=== PATIENT | male | born 1955 | race Caucasian/White ===

== ENCOUNTER 2017-09-16 12:20 | Day surgery (SDC) | payer OTHER ==
[~2017-09-16] VITALS: Ht 167.6 cm; Wt 75.7 kg
[~2017-09-16 12:20] MED LIST: ALPR.25; GEMF600; HYDR1TAB94; METO50ER; SERT100
== END 2017-09-16 14:23 | disposition home or self-care (01) ==
LOC: ORSCSDS 12:20
PROVIDERS: Surgery
PROC: 0DJD8ZZ Inspection of Lower Intestinal Tract, Via Natural or Artificial Opening Endoscopic (ICD-10-PCS; principal; 2017-09-16 13:45)
DX: Z12.11 Encounter for screening for malignant neoplasm of colon (principal); Z79.899 Other long term (current) drug therapy
CPT/HCPCS: J7120

== ENCOUNTER 2022-12-13 12:17 | Day surgery (SDC) | payer OTHER ==
[~2022-12-13] VITALS: Ht 167.6 cm; Wt 84.0 kg
[2022-12-13] MEDS ORDERED: AMLO5 (12:42)
[2022-12-13] MEDS ORDERED: BUSPIRONE HCL7.5 M1 (12:43)
[2022-12-13] MEDS ORDERED: ATOR40TA (12:43)
[2022-12-13] MEDS ORDERED: LISI20 (12:44)
[2022-12-13] MEDS ORDERED: FLUO.025TO (12:44)
[2022-12-13] MEDS ORDERED: HYDCHL25 (12:44)
[2022-12-13 14:37] VITALS: BP 116/74
== END 2022-12-13 14:25 | disposition home or self-care (01) ==
LOC: ORSCSDS 12:17
PROVIDERS: Surgery
PROC: 0DBP8ZX Excision of Rectum, Via Natural or Artificial Opening Endoscopic, Diagnostic (ICD-10-PCS; principal; 2022-12-13 13:30)
DX: Z12.11 Encounter for screening for malignant neoplasm of colon (principal); K62.1 Rectal polyp; Z80.0 Family history of malignant neoplasm of digestive organs; F41.8 Other specified anxiety disorders; H91.93 Unspecified hearing loss, bilateral; E78.5 Hyperlipidemia, unspecified; I10 Essential (primary) hypertension; G47.33 Obstructive sleep apnea (adult) (pediatric); Z79.899 Other long term (current) drug therapy
CPT/HCPCS: 88305; J0461; J2001; J2405; J2704; J7120; Q9968

== ENCOUNTER → 2023-01-09 | Outpatient (CLI) | payer OTHER ==
[~2023-01-09] MED LIST changes: +AMLO5; +ATOR40TA; +BUSPIRONE HCL7.5 M1; +FLUO.025TO; +HYDCHL25; +LISI20
== END ==
LOC: LAB 13:31 → LAB SHORT 13:31
DX: L03.123 Acute lymphangitis of right upper limb (principal)
CPT/HCPCS: 87070; 87147; 87205